=== PATIENT | male | born 1990 | race Two or more races ===

== ENCOUNTER 2018-06-21 09:12 | Emergency (ER) | payer OTHER, SELFPAY ==
[~2018-06-21] VITALS: Ht 182.9 cm; Wt 90.3 kg
[2018-06-21 09:18] VITALS: BP 158/87
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
[2018-06-21] MEDS ORDERED: DICL50TA4 PO (09:59)
[2018-06-21] MEDS ORDERED: METH4TAB2 PO (09:59)
[2018-06-21] MEDS ORDERED: CYCL10TA2 PO (10:00)
== END 2018-06-21 10:05 | disposition home or self-care (01) ==
LOC: ER 09:12
DX: M54.42 Lumbago with sciatica, left side (principal); M25.512 Pain in left shoulder; F17.210 Nicotine dependence, cigarettes, uncomplicated; V43.52XA Car driver injured in collision with other type car in traffic accident, initial encounter; Y93.89 Activity, other specified; Y92.410 Unspecified street and highway as the place of occurrence of the external cause; Y99.8 Other external cause status
CPT/HCPCS: 72100; 73030; 99284